=== PATIENT | female | born 1950 | race Caucasian/White ===

== ENCOUNTER → 2020-01-25 | Outpatient (CLI) | payer MEDICARE ==
[~2020-01-25] MED LIST: FENTANYL PF 100 MCG/2ML ONE; MIDAZOLAM 1 MG/ML, 5ML ONE
== END | disposition home or self-care (01) ==
LOC: RAD 11:53
PROVIDERS: ATTEND Family Medicine
DX: G54.2 Cervical root disorders, not elsewhere classified (principal); M48.02 Spinal stenosis, cervical region; I27.20 Pulmonary hypertension, unspecified; G47.30 Sleep apnea, unspecified
CPT/HCPCS: 72141; 99156; 99157; J2250; J3010